=== PATIENT | female | born 2000 | race Two or more races ===

== ENCOUNTER 2025-03-27 02:50 | Emergency (ER) | payer OTHER ==
[~2025-03-27] VITALS: Ht 157.5 cm; Wt 51.3 kg
[2025-03-27] MEDS ORDERED: ONDANSETRON HCL/PF 4 MG/2 ML VIAL ONE (04:59)
[2025-03-27] MEDS ORDERED: MECLIZINE HCL 25 MG TABLET ONE (05:00)
[2025-03-27] MEDS: MECLIZINE HCL 25 MG TABLET PO ONE (05:03)
[2025-03-27] MEDS: ONDANSETRON HCL/PF 4 MG/2 ML VIAL IVP ONE (05:03)
[2025-03-27] MEDS: IV NS 0.9% 1,000 ML BAG IV ONE (05:03)
[2025-03-27 05:22] LABS: PLATELET COUNT (AUTO) 120 K/uL (150-450); RED BLOOD CELL COUNT(AUTO) 4.36 MIL/uL (4.0-5.2); RED CELL DISTRIBUTION WIDTH 12.9 % (11.5-15.0); WHITE BLOOD COUNT (AUTO) 9.7 K/uL (4.3-11.0)
[2025-03-27 05:23] LABS: CALCIUM, SERUM 9.1 mg/dL (8.5-10.1); CREATININE 0.6 mg/dL (0.6-1.3); SODIUM SERUM 142.0 mmol/L (136-145); UREA NITROGEN, BLOOD 12.0 mg/dL (7-18)
[2025-03-27 05:34] LABS: PREGNANCY TEST URINE QUAL NEGATIVE (NEGATIVE)
[2025-03-27] MEDS ORDERED: ONDA4TAB11 PO (05:42)
[2025-03-27] MEDS ORDERED: MECL-159 PO (05:42)
[2025-03-27 05:51] LABS: LYMPHOCYTES % (MANUAL) 17 % (16-48); MONOCYTES % (MANUAL) 5 % (0-11.0); NEUTROPHILS % (MANUAL) 78 (42-76); PLATELET ESTIMATE DECREASED
[2025-03-27 06:19] VITALS: BP 111/72; TEMP 98.1; O2SAT 98
== END 2025-03-27 06:19 | disposition home or self-care (01) ==
LOC: ER 02:54
DX: R42 Dizziness and giddiness (principal); H61.21 Impacted cerumen, right ear; R11.2 Nausea with vomiting, unspecified; E86.0 Dehydration; E87.8 Other disorders of electrolyte and fluid balance, not elsewhere classified; H55.00 Unspecified nystagmus
CPT/HCPCS: 99284; 96374; 96361; 69209; 85025; 80048; 84703; 36415; 93005; 85027; 85007; J8597; J2405; J7030